=== PATIENT | female | born 1950 | race Caucasian/White ===

== ENCOUNTER 2016-05-06 07:30 | Inpatient (IN) | payer OTHER, MEDICAID ==
[~2016-05-06] VITALS: Ht 157.5 cm; Wt 77.2 kg
--- NOTE | 2016-05-06 19:55 | NUR ---
ADMISSION: The patient, MILKA HENDRICKS, 65 y/o, F admitted by NEVILLE SCHULTE MD, was given written information regarding hospital policies, unit procedures and contact persons. Valuables were checked and instructed on use of call light for assistance. Verbalized understanding.
--- NOTE | 2016-05-06 20:00 | NUR ---
PM ASSESSMENT PT. A/OX4, VITAL SIGNS STABLE, NO DISTRESS NOTED, DENIES PAIN, UPDATED WITH PLAN OF CARE, CALL LIGHT WITHIN REACH.
[2016-05-06 20:06] VITALS: BP 137/69; PULSE 72; RESP 18; TEMP 96.8; O2SAT 94
--- NOTE | 2016-05-06 20:30 | NUR ---
IV START IV STARTED ON LEFT FA 22G. NO S/S OF INFILTRATION.
[2016-05-06] MEDS ORDERED: LORA10TA7 PO (20:50)
[2016-05-06] MEDS ORDERED: ATOR80TA63 PO (20:50)
[2016-05-06] MEDS ORDERED: [UNRECOGNIZED DRUG - CODE] PO (20:50)
[2016-05-06] MEDS ORDERED: ATEN100T44 PO (20:50)
[2016-05-06] MEDS ORDERED: OMEP20CA10 PO (20:50)
[2016-05-06] MEDS ORDERED: ALBU8.5H8 INH (21:00)
[2016-05-06] MEDS ORDERED: PRO20 PO (21:00)
--- NOTE | 2016-05-06 21:59 | NUR ---
PAGED DR MARR, LAILA.
--- NOTE | 2016-05-06 22:00 | NUR ---
DR. SCHULTE CALLED DR. SCHULTE FOR ORDERS, REQUESTED CONSULT WITH DR. MOREL, BUT DR. MOREL UNABLE DUE TO PT. INSURANCE. DR. GRACE CALLED FOR CONSULT INSTEAD.
--- NOTE | 2016-05-06 22:07 | NUR ---
CONSULT: DR MOREL Consult for Dr Morel was called, RE: Material Handling Technician to follow pt celina Carrasco
[2016-05-06] MEDS ORDERED: COMMUNICATION ORDER XX ONE (22:15)
[2016-05-06] MEDS ORDERED: VITAMIN B COMPLEX WITH C TAB/CAP PO SCH (22:15)
[2016-05-06] MEDS ORDERED: LORATADINE 10 MG TABLET PO PRN (22:15)
[2016-05-06] MEDS: FLUoxetine HCL 20 MG CAPSULE (PROzac) PO SCH (22:15)
--- NOTE | 2016-05-06 22:24 | NUR ---
CONSULT: DR GRACE ([facility]) Consult was called, RE Wash Operator to follow surgery patient celina Moyer
[2016-05-06] MEDS ORDERED: ACETAMINOPHEN 650 MG/20.3 ML UDC PO PRN (22:30)
[2016-05-06] MEDS ORDERED: OMEPRAZOLE 20 MG CAPSULE.DR (PriLOSEC) PO ONE (22:30)
--- NOTE | 2016-05-06 23:00 | NUR ---
HEADACHE PT. C/O HEADACHE, TYLENOL 650 MG PO GIVEN ORDERED. WILL CONTINUE TO MONITOR.
[2016-05-06] MEDS ORDERED: ACETAMINOPHEN 325 MG TABLET PO PRN (23:15)
[2016-05-06] MEDS: D5/0.45 NS 1,000 ML IV SCH (23:28)
[2016-05-07] VITALS: BP 135/65; PULSE 68; RESP 17; TEMP 98.2; O2SAT 96
--- NOTE | 2016-05-07 | NUR ---
NPO PT. AWARE TO REMAIN NPO FOR REST OF THE NIGHT, VITAL SIGNS STABLE, NO DISTRESS NOTED, CALL LIGHT WITHIN REACH.
--- NOTE | 2016-05-07 01:30 | NUR ---
i have assumed the care of the pt.4 the remainder of the shift.pt.presents stable condition pt.2 submit 2 surgery:05/07/16. i have recieved the pt's info/data per ap.call light w/in pt's reach.
--- NOTE | 2016-05-07 02:00 | NUR ---
pt.assessed.pt.is repositioned.pt.presents quiescent affect;calm,asleep.iv fluids infusing.call light w/in pt's reach.
--- NOTE | 2016-05-07 02:00 | NUR ---
ENDORSED CARE TO YESIKA ESCALANTE.
--- NOTE | 2016-05-07 04:00 | NUR ---
pt.presents quiescent affect;calm,asleep.pt.repositioned,.call light w/in pt's reach.
[2016-05-07 04:34] VITALS: BP 132/71; PULSE 66; RESP 17; TEMP 98.4; O2SAT 97
--- NOTE | 2016-05-07 06:00 | NUR ---
pt.assessed.pt.scheduled 4 surgery:05/07/16.pt.submited 2 chg bath.pre-op chek-list attended 2 by gregg neal/breanne. call light w/in reach.
[2016-05-07 06:51] LABS: ALBUMIN 3.8 g/dL (3.4-4.8); CALCIUM 9.2 mg/dL (8.4-11.0); CREATININE 0.6 mg/dL (0.55-1.30); POTASSIUM 3.4 mmol/L (3.5-5.1); TOTAL BILIRUBIN 0.4 mg/dL (0.0-1.0); TOTAL PROTEIN, SERUM 7.9 g/dL (6.4-8.3)
[2016-05-07 06:56] LABS: PROTHROMBIN TIME 10.9 SECS (9.5-12.5)
[2016-05-07 07:05] LABS: BASOPHILS % (AUTO) 0.6 % (0.0-2.0); EOSINOPHILS # (AUTO) 0.3 K/uL (0.0-0.4); EOSINOPHILS % (AUTO) 3.2 % (0.0-4.0); HEMATOCRIT 36.4 % (36-48); HEMOGLOBIN 11.6 g/dL (12.0-16.0); MEAN CORPUSCULAR HEMOGLOBIN 25 pg (27-31); MEAN CORPUSCULAR HGB CONC 32 % (32-36); MEAN CORPUSCULAR VOLUME 78 fL (79.0-98.0); MONOCYTES # (AUTO) 0.5 K/uL (0.0-1.0); MONOCYTES % (AUTO) 5.9 % (1.7-9.3); NEUTROPHILS # (AUTO) 3.3 K/uL (1.8-7.7); NEUTROPHILS % (AUTO) 41.3 % (40.0-70.0); PLATELET COUNT (AUTO) 315 K/uL (130-430); RED BLOOD CELL COUNT(AUTO) 4.66 MIL/uL (4.2-6.2); RED CELL DISTRIBUTION WIDTH 12.9 % (9.0-15.0); WHITE BLOOD COUNT (AUTO) 8.1 K/uL (4.8-10.8)
[2016-05-07] MEDS ORDERED: DEXAMETHASONE SOD PHOSPHATE 4 MG/ML VIAL IVP ONE (07:05)
[2016-05-07] MEDS ORDERED: NS IRRIG SOLN 1000 ML IR ONE (07:05)
[2016-05-07] MEDS ORDERED: LR 1,000 ML IV.SOLN IV ONE (07:05)
[2016-05-07] MEDS ORDERED: MIDAZOLAM HCL 5 MG/5 ML VIAL IVP ONE (07:05)
[2016-05-07] MEDS ORDERED: BUPIVACAINE /EPINEPHRINE/PF 0.25% 30 ML VIAL INJ ONE (07:05)
[2016-05-07] MEDS ORDERED: ONDANSETRON HCL 4 MG/2 ML VIAL IVP ONE (07:05)
[2016-05-07] MEDS ORDERED: SEVOFLURANE 15 MIN GAS INH ONE (07:05)
[2016-05-07] MEDS ORDERED: CEFAZOLIN 2 GM IVPB PREMIX 50 ML IV ONE (07:05)
[2016-05-07] MEDS ORDERED: fentaNYL CITRATE 250 MCG/5 ML AMP IV ONE (07:05)
[2016-05-07] MEDS ORDERED: SUCCINYLCHOLINE CHLORIDE 20 MG/ML(QUELICIN) IVP ONE (07:05)
[2016-05-07] MEDS ORDERED: PROPOFOL 200MG/ 20ML VIAL (DIPRIVAN) IV ONE (07:05)
--- NOTE | 2016-05-07 07:36 | NUR ---
AM ROUNDS: Patient taken to OR.
--- NOTE | 2016-05-07 07:56 | NUR ---
COMMUNICATION: Spoke with lab and they have a urine sample with no orders. Spoke with Dr. Franco, stated no UA necessary. Red lab results for CBC, CMP to Dr. Franco. No orders for K: 3.4. Patient is OR.
[2016-05-07] MEDS ORDERED: LR 1,000 ML IV SCH (08:00)
[2016-05-07] MEDS ORDERED: HYDROmorphone 1 MG INJ. 1 MG/ML AMPUL IVP PRN (08:00)
[2016-05-07] MEDS ORDERED: HYDROmorphone 2 MG/ML VIAL IVP PRN ×2 (08:00)
[2016-05-07] MEDS ORDERED: ONDANSETRON HCL 4 MG/2 ML VIAL IVP PRN ×2 (08:00→11:15)
[2016-05-07] MEDS: ATENOLOL 50 MG TABLET (TENORMIN) PO SCH (08:55)
[2016-05-07] MEDS: FLUoxetine HCL 20 MG CAPSULE (PROzac) PO SCH ×2 (08:55→20:23)
[2016-05-07] MEDS: OMEPRAZOLE 20 MG CAPSULE.DR (PriLOSEC) PO SCH ×2 (08:55→20:23)
--- NOTE | 2016-05-07 10:26 | NUR ---
ROUNDS: Patient in OR.
[2016-05-07 10:45] VITALS: BP 128/72; PULSE 92; RESP 18; TEMP 96.6; O2SAT 99
--- NOTE | 2016-05-07 10:45 | NUR ---
RETURNED FROM OR: Patient returned. Total thyroidectomy performed.
[2016-05-07] MEDS ORDERED: MORPHINE 4 MG/ML INJ. SYRINGE IVP PRN (11:15)
[2016-05-07] MEDS ORDERED: OXYCODONE/ACETAMINOPHEN 5-325 TABLET PO PRN (11:15)
[2016-05-07] MEDS ORDERED: MORPHINE 2 MG/ML INJ. SYRINGE IVP PRN ×2 (11:15→13:00)
[2016-05-07] MEDS ORDERED: POTASSIUM CHLORIDE 20 MEQ in NS 250 ML IV ONE (11:15)
[2016-05-07] MEDS ORDERED: KCL 20 mEq in 100 mL (PREMIX) 100 ML IV ONE (11:30)
--- NOTE | 2016-05-07 12:05 | NUR ---
PATIENT RESTING: Patient resting quietly. No acute distress noted. Vital signs within normal range.
--- NOTE | 2016-05-07 13:20 | NUR ---
Nutrition Update Hu Scale 16 noted. Pt admitted for thyroid mass. Diet: clear liquid BMI: 31.1 kg/m2 RD to follow per nutrition care standards.
[2016-05-07 15:14] VITALS: BP 122/65; PULSE 101; RESP 16; TEMP 96; O2SAT 97
[2016-05-07] MEDS: D5/0.45 NS 1,000 ML IV SCH (15:57)
--- NOTE | 2016-05-07 16:11 | NUR ---
PATIENT RESTING: Patient resting quietly. No acute distress noted. Vital signs within normal range.
[2016-05-07 17:37] LABS: CALCIUM 8.9 mg/dL (8.4-11.0); CREATININE 0.94 mg/dL (0.55-1.30)
--- NOTE | 2016-05-07 18:12 | NUR ---
CLOSING NOTE: All needs met. No change in assessment. Will endorse to NOC shift nurse.
--- NOTE | 2016-05-07 19:10 | NUR ---
Paged Dr Cisneros, celina Moyer.
[2016-05-07 19:30] VITALS: BP 108/52; PULSE 98; RESP 18; TEMP 97.7; O2SAT 93
--- NOTE | 2016-05-07 19:30 | NUR ---
Initial PM Note Pt was received lying in bed fully AAO x4. Speech is clear and pt is able to make her needs known. No c/o pain or discomfort. Anterior neck dressing is clean, dry and intact. DESI drain is in place with no drainage noted. IVF is infusing well in LFA and no signs of infiltration noted at the IV site. Fall precautions are in place. Pt was instructed to call for assistance as needed and pt verbalized understanding. Call light is with pt. Bed is in the lowest and locked positions. Will continue to monitor pt.
[2016-05-07] MEDS ORDERED: ATORVASTATIN 20 MG TABLET PO SCH (21:00)
--- NOTE | 2016-05-07 21:00 | NUR ---
Incentive Spirometer Incentive spirometer was given to pt after explaining it's use to pt. Pt was instructed to use it 10X q 1hr while awake. Pt verbalized understanding and had good demonstration of how to use it. Volume is up to 750ml.
--- NOTE | 2016-05-07 23:15 | NUR ---
Hands off Report Report was given to nurse Mensah for continuity of pt's nursing care.
--- NOTE | 2016-05-07 23:30 | NUR ---
ROUNDS RECEIVED PATIENT FOR CONTINUITY OF CARE, AWAKE, ALERT, ORIENTED, VITALS STABLE, DENIES ANY PAIN AND DISCOMFORT AT THIS TIME. ASSISTED PATIENT TO THE BATHROOM. DRESSING TO THE NECK AREA CLEAN, DRY AND INTACT. IVF INFUSING WELL TO THE LEFT FOREARM G. 22, IV SITE PATENT WITH NO SIGNS OF INFILTRATION. NEEDS ATTENDED TO. SAFETY AND FALL PRECAUTION MEASURES IN PLACED. BED IN LOW AND LOCKED POSITION. CALL LIGHT PLACED WITHIN REACH.
[2016-05-08] VITALS: BP 114/58; PULSE 98; RESP 16; TEMP 98.5; O2SAT 94
--- NOTE | 2016-05-08 02:30 | NUR ---
ROUNDS PATIENT ASLEEP, NO SOB NOTED, DRESSING C/D/I, WILL CONTINUE TO MONITOR.
[2016-05-08 04:00] VITALS: BP 116/62; PULSE 90; RESP 16; TEMP 98.6; O2SAT 94
--- NOTE | 2016-05-08 04:00 | NUR ---
PATIENT RESTING: Patient resting quietly. No acute distress noted. Vital signs within normal range.
[2016-05-08] MEDS: D5/0.45 NS 1,000 ML IV SCH (04:39)
--- NOTE | 2016-05-08 06:14 | NUR ---
CLOSING NOTES PATIENT AWAKE, VITALS STABLE, DENIES ANY PAIN AT THIS TIME. ALL NEEDS ATTENDED TO. SAFETY AND FALL PRECAUTION MEASURES MAINTAINED. CALL LIGHT PLACED WITH PATIENT.
[2016-05-08 07:07] LABS: ALBUMIN 3.3 g/dL (3.4-4.8); CALCIUM 8.6 mg/dL (8.4-11.0); CREATININE 0.77 mg/dL (0.55-1.30); POTASSIUM 3.6 mmol/L (3.5-5.1); TOTAL BILIRUBIN 0.3 mg/dL (0.0-1.0); TOTAL PROTEIN, SERUM 7.2 g/dL (6.4-8.3)
[2016-05-08 07:10] LABS: BASOPHILS % (AUTO) 0.1 % (0.0-2.0); HEMATOCRIT 32.4 % (36-48); HEMOGLOBIN 10.6 g/dL (12.0-16.0); LYMPHOCYTES # (AUTO) 2.1 K/uL (1.0-5.5); LYMPHOCYTES % (AUTO) 14.3 % (20.5-51.5); MEAN CORPUSCULAR HEMOGLOBIN 25 pg (27-31); MEAN CORPUSCULAR HGB CONC 33 % (32-36); MEAN CORPUSCULAR VOLUME 77 fL (79.0-98.0); MONOCYTES # (AUTO) 0.9 K/uL (0.0-1.0); NEUTROPHILS # (AUTO) 11.4 K/uL (1.8-7.7); NEUTROPHILS % (AUTO) 79.6 % (40.0-70.0); PLATELET COUNT (AUTO) 309 K/uL (130-430); RED BLOOD CELL COUNT(AUTO) 4.22 MIL/uL (4.2-6.2); RED CELL DISTRIBUTION WIDTH 13.4 % (9.0-15.0); WHITE BLOOD COUNT (AUTO) 14.4 K/uL (4.8-10.8)
--- NOTE | 2016-05-08 07:30 | NUR ---
Initial notes: pt sitting on the bed. stable. no bleeding on her throat. J.P. not connected. i.v. access patent. call light within reach.
[2016-05-08] MEDS: OMEPRAZOLE 20 MG CAPSULE.DR (PriLOSEC) PO SCH (09:51)
[2016-05-08] MEDS: FLUoxetine HCL 20 MG CAPSULE (PROzac) PO SCH (09:52)
[2016-05-08] MEDS: ATENOLOL 50 MG TABLET (TENORMIN) PO SCH (09:52)
--- NOTE | 2016-05-08 09:54 | NUR ---
med pass: pt morning meds given. compliant.
--- NOTE | 2016-05-08 10:20 | NUR ---
Tisharounds: Sesn by Dr. Franco. Removed the J.P. and applied dressing. D/C oxygen. D/C I.V. fluids. Diet changed to full liquid.
--- NOTE | 2016-05-08 11:00 | NUR ---
rounds: pt on bed stable with family.
[2016-05-08 12:59] VITALS: BP 125/63; PULSE 87; RESP 16; TEMP 97.9; O2SAT 93
[2016-05-08 13:05] VITALS: BP 112/66; PULSE 63; RESP 17; TEMP 97.4; O2SAT 97
[2016-05-09] MEDS ORDERED: LEVOTHYROXINE SODIUM 0.075 MG TABLET PO SCH (07:00)
--- NOTE | 2016-05-11 11:34 | NUR ---
Discharge Follow Up Phone Calls: Cell Liner called and left a voice mail for pt ([phone]) on 05/10/16. SECURITY CONSULTANT called and left a voice mail for pt today. SECURITY CONSULTANT called and spoke with pt's dtr, Mayra ([phone]), today. Pt's dtr states that pt is doing well; there are no questions regarding discharge or medication instructions; pt went to follow up appointment with Dr. Franco on 05/10/16; pt has a follow up appointment scheduled with Dr. Rodriguez. Pt's dtr did not express any other needs or concerns and denied the need for additional follow up at this time. No further follow up phone calls required at this time.
== END 2016-05-08 11:45 | disposition home or self-care (01) | DRG 627 ==
LOC: SMU 19:15
PROVIDERS: ADMIT Surgery; ATTEND Surgery
PROC: 0GBH0ZZ Excision of Right Thyroid Gland Lobe, Open Approach (ICD-10-PCS; 2016-05-07)
PROC: 4B01XVZ Measurement of Peripheral Nervous Stimulator, External Approach (ICD-10-PCS; 2016-05-07)
PROC: 0GBG0ZZ Excision of Left Thyroid Gland Lobe, Open Approach (ICD-10-PCS; principal; 2016-05-07 07:30)
DX: E04.2 Nontoxic multinodular goiter (principal); E78.5 Hyperlipidemia, unspecified; I10 Essential (primary) hypertension; M19.90 Unspecified osteoarthritis, unspecified site; J45.909 Unspecified asthma, uncomplicated; F32.9 Major depressive disorder, single episode, unspecified; D64.9 Anemia, unspecified; Z90.710 Acquired absence of both cervix and uterus; Z88.2 Allergy status to sulfonamides
CPT/HCPCS: 36415; 80048; 80053; 82330; 85025; 85610-TC; 87081; 88307; 93005; J0330; J0690; J1100; J2250; J2270; J2405; J2704; J3010; J3480; J3490; J7120